=== PATIENT | female | born 1960 | race Caucasian/White ===

== ENCOUNTER 2019-05-09 09:51 | Emergency (ER) | payer OTHER ==
[~2019-05-09] VITALS: Ht 160 cm; Wt 74.8 kg
[2019-05-09 10:06] VITALS: Ht 160 cm; Wt 74.8 kg
[2019-05-09 14:45] VITALS: BP 162/91
== END 2019-05-09 14:45 | disposition left against medical advice (07) ==
LOC: ED 09:51
DX: Z53.21 Procedure and treatment not carried out due to patient leaving prior to being seen by health care provider (principal)
CPT/HCPCS: Q0092